=== PATIENT | female | born 1990 | race Caucasian/White ===

== ENCOUNTER 2017-02-18 20:21 | Inpatient (IN) | payer MEDICAID ==
[~2017-02-18] VITALS: Ht 152.4 cm; Wt 52.2 kg
[2017-02-18 21:11] LABS: CALCIUM 7.9 mg/dL (8.5-10.1); CARBON DIOXIDE 23.2 mmol/L (21-32); CHLORIDE SERUM 104 mmol/L (98-107); CREATININE SERUM 0.7 mg/dL (0.6-1.0); GFR1 > 60 mL/min; GLUCOSE SERUM 112 mg/dL (74-106); PLATELET COUNT 143 x10^3mcL (130-400); POTASSIUM SERUM 3.1 mmol/L (3.5-5.1); RED CELL DISTRIBUTION WIDTH 12.4 % (11.5-14.5); SODIUM SERUM 136 mmol/L (136-145)
[2017-02-18 21:12] LABS: BASOPHIL % 3.8 % (0-2)
[2017-02-18 21:25] LABS: AMPHETAMINE QUAL UR NONE DETECTED (NEG <=1000)
[2017-02-18 21:26] LABS: ALBUMIN 3.9 g/dL (3.4-5.0); ALKALINE PHOSPHATASE 71 U/L (46-116); ALT/SGPT 19 U/L (14-59); AST/SGOT 14 U/L (15-37); BILIRUBIN TOTAL 0.1 mg/dL (0.20-1.00); TOTAL PROTEIN, SERUM 7.3 g/dL (6.4-8.2)
[2017-02-18] MEDS ORDERED: PHENOBARBITAL64.8 MG PO (21:45)
[2017-02-18 22:39] VITALS: BP 103/65
[2017-02-18 22:41] VITALS: Ht 152.4 cm; Wt 52.2 kg
[2017-02-18 22:57] LABS: microscopic required? NO
[2017-02-18 23:06] LABS: UA SPECIFIC GRAVITY 1.025 (1.005-1.035); urine erythrocyte NEGATIVE (NEGATIVE)
[2017-02-18 23:07] LABS: PHOSPHOROUS 3.2 mg/dL (2.5-4.9)
[2017-02-18 23:08] LABS: CHOLESTEROL/HDL RATIO 2.6
[2017-02-18 23:33] LABS: FREE T4 1.1 ng/dL (0.76-1.46); FREE THYROXINE INDEX 2.3 ug/dL (1.4-4.5); T4(THYROXINE) 6.5 ug/dL (4.7-13.3)
[2017-02-19 06:31] VITALS: BP 92/53
[2017-02-19 07:11] LABS: PLATELET COUNT 144 x10^3mcL (130-400); RED CELL DISTRIBUTION WIDTH 12.4 % (11.5-14.5)
[2017-02-19 07:20] LABS: BASOPHIL % 2.1 % (0-2)
[2017-02-19 07:28] LABS: CARBON DIOXIDE 25.8 mmol/L (21-32); CHLORIDE SERUM 108 mmol/L (98-107); CREATININE SERUM 0.6 mg/dL (0.6-1.0); GFR1 > 60 mL/min; GLUCOSE SERUM 100 mg/dL (74-106); POTASSIUM SERUM 4.1 mmol/L (3.5-5.1); SODIUM SERUM 141 mmol/L (136-145)
[2017-02-19 10:00] VITALS: BP 94/46
[2017-02-19 14:09] VITALS: BP 96/55
[2017-02-19] MEDS ORDERED: PHENOBARBITAL64.8 MG PO (16:29)
[2017-02-19] MEDS ORDERED: LAM100 PO (16:29)
[2017-02-19] MEDS ORDERED: LEXAPRO10 MG PO (16:30)
[2017-02-19] MEDS ORDERED: SYN25 PO (16:31)
[2017-02-19 17:15] VITALS: BP 90/56
[2017-02-19] MEDS ORDERED: FOL1 PO (17:58)
[2017-02-19 20:46] VITALS: BP 96/54
[2017-02-20 05:09] VITALS: BP 87/54
[2017-02-20 06:16] LABS: BASOPHIL % 0.8 % (0-2); PLATELET COUNT 141 x10^3mcL (130-400); RED CELL DISTRIBUTION WIDTH 13.2 % (11.5-14.5)
[2017-02-20 06:22] LABS: CALCIUM 7.7 mg/dL (8.5-10.1); CARBON DIOXIDE 26.8 mmol/L (21-32); CHLORIDE SERUM 107 mmol/L (98-107); CREATININE SERUM 0.7 mg/dL (0.6-1.0); GFR1 > 60 mL/min; GLUCOSE SERUM 85 mg/dL (74-106); POTASSIUM SERUM 3.9 mmol/L (3.5-5.1); SODIUM SERUM 140 mmol/L (136-145)
[2017-02-20 10:21] VITALS: BP 89/52
[2017-02-20 14:37] VITALS: BP 89/52
[2017-02-20 18:21] VITALS: BP 104/61
[2017-02-20] MEDS ORDERED: PHENOBARBITAL64.8 MG PO (19:01)
== END 2017-02-20 20:06 | disposition home or self-care (01) | DRG 53 ==
LOC: ED 20:21 → DU 21:54 → MU 02-20 11:50
PROVIDERS: Emergency Medicine; Family Medicine
DX: G40.909 Epilepsy, unspecified, not intractable, without status epilepticus (principal); E83.51 Hypocalcemia; E87.6 Hypokalemia; D64.9 Anemia, unspecified; Z68.23 Body mass index [BMI] 23.0-23.9, adult; Z91.14 Patient's other noncompliance with medication regimen
CPT/HCPCS: 82962; 83880; 84439; G0480; J2060; J2405; J2560; J7030; J7040; J8597; Q0092

== ENCOUNTER 2017-04-11 09:56 | Inpatient (IN) | payer MEDICAID ==
[~2017-04-11] VITALS: Ht 160 cm; Wt 52.8 kg
[~2017-04-11 09:56] MED LIST: FOL1 PO; LAM100 PO; LEXAPRO10 MG PO; PHENOBARBITAL64.8 MG PO; SYN25 PO
[2017-04-11 10:34] LABS: BASOPHIL % 0.8 % (0-2); PLATELET COUNT 168 x10^3mcL (130-400); RED CELL DISTRIBUTION WIDTH 12.6 % (11.5-14.5)
[2017-04-11 10:41] LABS: CARBON DIOXIDE 22.7 mmol/L (21-32); CHLORIDE SERUM 105 mmol/L (98-107); CREATININE SERUM 0.6 mg/dL (0.6-1.0); GFR1 > 60 mL/min; GLUCOSE SERUM 88 mg/dL (74-106); POTASSIUM SERUM 3.7 mmol/L (3.5-5.1); SODIUM SERUM 139 mmol/L (136-145)
[2017-04-11 10:47] LABS: ALBUMIN 3.7 g/dL (3.4-5.0); ALKALINE PHOSPHATASE 59 U/L (46-116); ALT/SGPT 21 U/L (14-59); AST/SGOT 15 U/L (15-37); BILIRUBIN TOTAL 0.33 mg/dL (0.20-1.00); TOTAL PROTEIN, SERUM 7.2 g/dL (6.4-8.2)
[2017-04-11 13:05] LABS: T3 TOTAL 1.34 ng/mL
[2017-04-11 13:08] LABS: MAGNESIUM 2.1 mg/dL (1.8-2.4); PHOSPHOROUS 2.9 mg/dL (2.5-4.9)
[2017-04-11 13:19] LABS: FREE T4 1.27 ng/dL (0.76-1.46); FREE THYROXINE INDEX 2.9 ug/dL (1.4-4.5); T4(THYROXINE) 7.9 ug/dL (4.7-13.3)
[2017-04-11 14:29] VITALS: BP 93/56
[2017-04-11 17:39] VITALS: BP 93/56
[2017-04-11 21:51] VITALS: BP 92/55
[2017-04-11 23:03] VITALS: BP 93/54
[2017-04-11 23:23] VITALS: BP 97/54
[2017-04-12] VITALS (9 sets, daily range): BP systolic 90–115; BP diastolic 46–68; Ht 160 cm; Wt 52.8 kg
[2017-04-12 06:41] LABS: BASOPHIL % 0.6 % (0-2); PLATELET COUNT 160 x10^3mcL (130-400); RED CELL DISTRIBUTION WIDTH 12.6 % (11.5-14.5)
[2017-04-12 07:12] LABS: CARBON DIOXIDE 21.9 mmol/L (21-32); CHLORIDE SERUM 108 mmol/L (98-107); CREATININE SERUM 0.6 mg/dL (0.6-1.0); GFR1 > 60 mL/min; GLUCOSE SERUM 72 mg/dL (74-106); POTASSIUM SERUM 3.6 mmol/L (3.5-5.1); SODIUM SERUM 141 mmol/L (136-145)
[2017-04-12 14:26] LABS: UA SPECIFIC GRAVITY 1.015 (1.005-1.035); microscopic required? YES; urine erythrocyte NEGATIVE (NEGATIVE)
[2017-04-12 14:53] LABS: AMPHETAMINE QUAL UR NONE DETECTED (NEG <=1000)
[2017-04-12] MEDS ORDERED: PHE30 PO ×2 (15:19→15:35)
== END 2017-04-12 18:47 | disposition home or self-care (01) | DRG 53 ==
LOC: ED 09:56 → DU 12:00
PROVIDERS: Emergency Medicine; Family Medicine
DX: G40.909 Epilepsy, unspecified, not intractable, without status epilepticus (principal); E83.51 Hypocalcemia; G90.8 Other disorders of autonomic nervous system; E03.9 Hypothyroidism, unspecified; Z88.8 Allergy status to other drugs, medicaments and biological substances; F41.9 Anxiety disorder, unspecified; F32.9 Major depressive disorder, single episode, unspecified; Z83.3 Family history of diabetes mellitus; Z91.19 Patient's noncompliance with other medical treatment and regimen
CPT/HCPCS: 84439; G0480; J2060; J7030; J7040; J8597; Q0092

== ENCOUNTER 2018-12-22 07:12 | Emergency (ER) | payer OTHER ==
[~2018-12-22] VITALS: Ht 162.6 cm; Wt 59.0 kg
[~2018-12-22 07:12] MED LIST changes: +PHE30 PO
[2018-12-22 07:14] VITALS: Ht 162.6 cm; Wt 59.0 kg
[2018-12-22 08:09] LABS: BASOPHIL % 0.2 % (0-2); PLATELET COUNT 141 x10^3mcL (130-400); RED CELL DISTRIBUTION WIDTH 12.9 % (11.5-14.5)
[2018-12-22 08:13] LABS: CARBON DIOXIDE 26.9 mmol/L (21-32); CHLORIDE SERUM 105 mmol/L (98-107); CREATININE SERUM 0.7 mg/dL (0.6-1.0); GFR1 > 60 mL/min; GLUCOSE SERUM 129 mg/dL (74-106); POTASSIUM SERUM 3.6 mmol/L (3.5-5.1); SODIUM SERUM 141 mmol/L (136-145)
[2018-12-22 08:18] LABS: ALBUMIN 3.9 g/dL (3.4-5.0); ALKALINE PHOSPHATASE 73 U/L (46-116); ALT/SGPT 18 U/L (14-59); AST/SGOT 11 U/L (15-37); BILIRUBIN TOTAL 0.22 mg/dL (0.20-1.00); TOTAL PROTEIN, SERUM 7.1 g/dL (6.4-8.2)
[2018-12-22 11:44] VITALS: BP 101/51
== END 2018-12-22 11:44 | disposition home or self-care (01) ==
LOC: ED 07:12
PROVIDERS: Emergency Medicine
DX: G40.909 Epilepsy, unspecified, not intractable, without status epilepticus (principal); E03.9 Hypothyroidism, unspecified; Z88.2 Allergy status to sulfonamides
CPT/HCPCS: J2060; Q0092

== ENCOUNTER 2019-08-13 16:56 | Emergency (ER) | payer OTHER ==
[~2019-08-13] VITALS: Ht 162.6 cm; Wt 54.9 kg
[2019-08-13 17:13] VITALS: Ht 162.6 cm; Wt 54.9 kg
[2019-08-13 17:50] LABS: BASOPHIL % 0.1 % (0-2); PLATELET COUNT 186 x10^3mcL (130-400); RED CELL DISTRIBUTION WIDTH 12.9 % (11.5-14.5)
[2019-08-13 17:57] LABS: microscopic required? YES; urine erythrocyte 1+ (NEGATIVE)
[2019-08-13 19:27] VITALS: BP 106/63
== END 2019-08-13 19:27 | disposition home or self-care (01) ==
LOC: ED 16:56
PROVIDERS: Emergency Medicine
DX: O26.851 Spotting complicating pregnancy, first trimester (principal); Z3A.01 Less than 8 weeks gestation of pregnancy
CPT/HCPCS: Q0092